=== PATIENT | female | born 1950 | race Two or more races ===

== ENCOUNTER 2024-01-07 09:49 | Emergency (ER) | payer OTHER ==
[~2024-01-07] VITALS: Ht 160 cm; Wt 67.1 kg
[2024-01-07] MEDS ORDERED: KETOROLAC TROMETHAMINE 60 MG VIAL IM ONE (12:00)
== END 2024-01-07 12:07 | disposition home or self-care (01) ==
LOC: ER 09:51
DX: S01.82XA Laceration with foreign body of other part of head, initial encounter (principal); W18.39XA Other fall on same level, initial encounter; Y93.89 Activity, other specified; Y92.89 Other specified places as the place of occurrence of the external cause; M12.521 Traumatic arthropathy, right elbow